=== PATIENT | female | born 1950 | race Caucasian/White ===

== ENCOUNTER 2017-11-10 08:17 | Emergency (ER) | payer OTHER ==
[~2017-11-10] VITALS: Ht 162.6 cm; Wt 73.9 kg
[2017-11-10] MEDS ORDERED: OXYBUTYNIN 5 MG5 M2 PO (08:28)
[2017-11-10] MEDS ORDERED: SYNTHROID75 MCG PO (08:28)
[2017-11-10] MEDS ORDERED: NORCO 5-325 TA1 EACH PO (10:16)
[2017-11-10 10:43] VITALS: BP 141/76
== END 2017-11-10 10:44 | disposition home or self-care (01) ==
LOC: M.ERS 08:17
DX: S42.211A Unspecified displaced fracture of surgical neck of right humerus, initial encounter for closed fracture (principal); Z88.2 Allergy status to sulfonamides; Z88.8 Allergy status to other drugs, medicaments and biological substances; W01.0XXA Fall on same level from slipping, tripping and stumbling without subsequent striking against object, initial encounter; Y93.89 Activity, other specified; Y92.89 Other specified places as the place of occurrence of the external cause; Y99.8 Other external cause status